=== PATIENT | male | born 1990 | race Caucasian/White ===

== ENCOUNTER 2017-03-25 17:08 | Emergency (ER) | payer SELFPAY ==
[~2017-03-25] VITALS: Ht 182.8 cm; Wt 68.0 kg
[~2017-03-25 17:08] MED LIST: ADDERALL20 MG; ADDERALL20 MG PO; ALBUTEROL0.09 MG/A2 IH; AMOXICILLIN500 MG PO; BACTRIM DS 8001 TA1 PO; BENADRYL25 MG PO; CIPROFLOXACIN500 MG PO; CLINDAMYCIN HC300 MG PO; FLEXERIL10 MG PO; FLEXERIL5 MG PO; KEFLEX500 M1 PO; KEFLEX500 MG PO; MEDROL DOSEPAK4 MG PO; MOTRIN800 MG PO; Motrin,Rufen800 MG PO; NAPROSYN500 MG PO; NKHM; NORCO 325 MG-51 TAB PO; PREDNICOT20 MG PO; VALIUM10 MG; VIBRAMYCIN100 MG PO; VISTARIL50 MG PO; ZANTAC150 MG PO; ZITHROMAX Z PA250 MG PO; ZITHROMAX250 MG PO
[2017-03-25 17:19] VITALS: BP 121/91
== END 2017-03-25 18:34 | disposition left against medical advice (07) ==
LOC: ED 17:08
DX: F11.23 Opioid dependence with withdrawal (principal); F41.9 Anxiety disorder, unspecified; F17.200 Nicotine dependence, unspecified, uncomplicated; F10.10 Alcohol abuse, uncomplicated; Z53.21 Procedure and treatment not carried out due to patient leaving prior to being seen by health care provider

== ENCOUNTER 2017-05-19 09:47 | Inpatient (IN) | payer OTHER ==
[~2017-05-19] VITALS: Ht 182.9 cm; Wt 70.3 kg
--- NOTE | ~2017-05-19 | PR ---
[place], [place] PROGRESS NOTE NAME: JANE MIRANDA JR [facility] #: [id number] UNIT #: [id number] ROOM: 528 DOCTOR: JOYCE SIGALA MD BIRTHDATE: [birth year] DOS: 05/22/2017 SUBJECTIVE: The patient was seen and examined. He is awake and alert. He denied any issues. Denies shortness of breath, fevers, chills or night sweats. He is without shortness of breath or chest pain. PHYSICAL EXAMINATION: VITAL SIGNS: Temperature 98.2, pulse 68, respiratory rate 20, blood pressure 140/78. HEENT: Shows no JVD. LUNGS: Clear. HEART: Normal S1, S2. ABDOMEN: Soft, nontender. There is no organomegaly. EXTREMITIES: Showed no edema. SKIN: Showed no rash. LABORATORY DATA: Hemoglobin 13.9, white count of 11.9, platelets 275. Sodium 140, potassium 3.9, CO2 of 27, BUN 7, creatinine of 0.88, calcium 7.9. CK of 6986. ASSESSMENT AND PLAN: 1. Acute kidney injury with rhabdomyolysis. The patient's renal function is improving. His CK levels have been improving. Continue IV fluids for now. Replace electrolytes as needed. 2. Leukocytosis. This seems to be improving. Management per the primary service. 3. Elevated LFTs. This is also trending downward. Continue to follow. JOYCE SIGALA MD CM:PNTRANS 02 30 JOYCE SIGALA MD 05/22/172027 interface
--- NOTE | ~2017-05-19 | CON ---
[place], [place] REPORT OF CONSULTATION NAME[id number] UN[facility] #: [id number] ROOM: 528 DOCTOR: TATY BRADSHAW MD BIRTHDATE: [birth year] DOS: 05/19/2017 REASON FOR CONSULTATION: Acute kidney injury. HISTORY OF PRESENT ILLNESS: The patient is a 27-year-old gentleman that came to the Emergency Room, found down. He was found to be lethargic. It was unclear what has been happening. He is known to have a history of drug abuse, both IV and other polysubstances. His urinalysis was positive for blood, protein, and he has been noting tea-colored urine. He has been using cocaine. He smokes tobacco as well as marijuana. The patient was apparently found down and has had excruciating pain around the right buttock area into the hamstring and thigh area. He has had several imaging studies which were negative for any findings of fracture or acute bony abnormalities. His CPK is nearly 30,000. His urine myoglobin is greater than the detectable limits. They do not remember any history of kidney problems in the past and the only labs in his system showed a normal creatinine 0.9 a year and a half ago. His creatinine was 1.63 on arrival here today. His electrolytes were otherwise within normal limits. His lactate was elevated to 2.4, but improved after volume to 1.6. His CPK was 29,891 with a troponin of 0.9. ESR was negative. He is dry with an albumin level that is slightly hyperconcentrated of 4.6. Amylase and lipase were normal. His tox screen was as above and coags are normal. His white count was elevated at 22,000. His hemoglobin is 15, platelets 368. There are no medications that the patient is aware of and the patient is somnolent at this time, but does answer brief questions. Most of the history is gained from the chart as well as the [id number] who is at the bedside. PAST MEDICAL, FAMILY AND SOCIAL HISTORY AND REVIEW OF SYSTEMS: Noted and reviewed from the admitting H and P and unchanged. He works as an industrial removal expert, cleaning out junked warehouses . PHYSICAL EXAMINATION: VITAL SIGNS: 90s-120s/60s-80s, temperature afebrile, heart rates 90s, respiratory rate 16-20, pulse ox 97% on room air. GENERAL: He is lethargic, but awakens to voice. He is oriented in spheres, knows he is in the hospital and he is oriented to himself. PSYCHIATRIC: Memory is apparently still intact as well. SKIN: There are no skin changes or breakdowns. EXTREMITIES: There is tenderness of the right buttock and hip and flank area, mostly in the muscle compartments, but without tense edema palpable. There is no calf tenderness in either extremity. HEENT: Extraocular muscles are intact. Sclerae are anicteric. Oropharynx is dry. NECK: No JVD or lymphadenopathy, no carotid bruit. LUNGS: Clear bilaterally without audible rales or wheeze. He is tattooed. CARDIOVASCULAR: Rate is regular. No audible rub. ABDOMEN: Soft, nontender, nondistended. No rebound or guarding. NEUROLOGIC: Gross motor functions intact. Sensation is grossly intact. Mood and affect are normal. LABORATORIES AND DIAGNOSTICS: All reviewed. Troponin 0.9. CK 29,891. [place], [place] REPORT OF CONSULTATION NAME: JANE MIRANDA JR UNIT #: [id number] ROOM: 528 DOCTOR: TATY BRADSHAW MD BIRTHDATE: [birth year] Myoglobin greater than 20,000. Lactic acid now down to 1.6. Urinalysis as above with trace protein, 3+ blood, some rbc's and wbc's. Reportedly, there are RBC casts noted. This was per the lab read. I will need to review this myself. Positive for urine cocaine and cannabinoids. White count is 22,000, hemoglobin [address] of the hip, ultrasound of the abdomen, CT of the lumbar spine was given with contrast. X-ray of the hip and x-ray of the chest were all reviewed as well as a CT of the head. ASSESSMENT AND PLAN: Acute kidney injury likely due to rhabdomyolysis, question of RBC casts brings up the possibility of an acute glomerulonephritis; however, this seems less likely though drug abuse and heroin nephropathy MPGN are certainly plausible, it seems less likely when his clinical findings are more consistent with rhabdomyolysis. Continue to give copious hydration. We will need to monitor for the effects of possible contrast-induced nephropathy and continue with IV fluids. Monitor serial CPK levels and we will recheck a urine sediment analysis as we get a better idea of where his renal function trends. Avoid use of nephrotoxic medications for the contrast agents if possible, avoid the use of NSAIDs and dose medications for GFR of 30-40 at this point based on his urinalysis, we may be able to adjust this as needed. Thank you very much for the kind consultation. TATY BRADSHAW MD CM:CONSTR:REPORT OF CONSULTATION 1918 05/19/17 2241 interface
[2017-05-19 09:51] VITALS: BP 98/63
[2017-05-19 10:17] LABS: HEMATOCRIT 45.9 % (42.0-52.0); MEAN CELL VOLUME 89.8 fl (80.0-94.0); MEAN CORPUSCULAR HGB 29.4 pg (27.0-31.0); MEAN CORPUSCULAR HGB CONC 32.7 g/dl (33.0-37.0); MEAN PLATELET VOLUME 9.2 fl (9.6-12.3); PLATELET COUNT AUTOMATED 368 10*3/uL (130-400); RED BLOOD COUNT 5.11 10*6/uL (4.50-5.90); RED CELL DISTRI WIDTH 13.2 % (0-14.5); WHITE BLOOD COUNT 22.1 10*3/uL (4.8-10.8)
[2017-05-19 10:33] LABS: ALBUMIN 4.6 gm/dl (3.1-4.5); ALKALINE PHOSPHATASE 121 U/L (45-117); BUN 19 mg/dl (7-24); CHLORIDE 102 mmol/L (98-107); CREATININE 1.63 mg/dL (0.70-1.30); POTASSIUM 4.8 mmol/L (3.5-5.1); SGOT/AST 178 IU/L (3-35); SGPT/ALT 56 U/L (12-78); SODIUM 139 mmol/L (136-145); TOTAL PROTEIN 8.4 gm/dL (6.4-8.2)
[2017-05-19 10:36] LABS: ACETAMINOPHEN (TYLENOL) < 2.0 ug/ml (10-30); ETHYL ALCOHOL < 3.0 mg/dl (<3); TROPONIN I 0.291 ng/ml (<0.045)
[2017-05-19 10:37] LABS: PLATELET SUFFICIENCY NORMAL (NORMAL); TOTAL CELLS COUNTED 100 #CELLS
[2017-05-19 11:03] LABS: ACT PARTIAL THROMBO TIME 21.9 SECONDS (20.8-31.5)
[2017-05-19 12:04] LABS: BILIRUBIN NEGATIVE (NEGATIVE); BLOOD 3+ (NEGATIVE); CLARITY CLOUDY (CLEAR); COLOR YELLOW (YELLOW); GLUCOSE 3+ (NEGATIVE); KETONE NEGATIVE (NEGATIVE); LEUKO ESTERASE NEGATIVE (NEGATIVE); NITRITE NEGATIVE (NEGATIVE); SPECIFIC GRAVITY >= 1.030 (1.005-1.030); UROBILINOGEN 0.2 E.U./dl (0.2-1.0)
[2017-05-19 12:20] VITALS: BP 132/80
[2017-05-19 12:23] LABS: URINE AMPHETAMINES < 1000 (1000ng/ml); URINE BARBITURATES < 200 (200ng/ml); URINE BENZODIAZEPINES < 200 (200ng/ml); URINE CANNABINOIDS (THC) > 50 (50ng/ml); URINE COCAINE > 300 (300ng/ml); URINE METHADONE < 300 (300ng/ml); URINE OPIATES < 300 (300ng/ml)
[2017-05-19 12:27] LABS: BACTERIA 2+; RBC 31-40 rbc/hpf (0-2); RED BLOOD CELL CAST 20-30
[2017-05-19 12:30] LABS: URINE PHENCYCLIDINE < 25 (25ng/ml)
[2017-05-19 14:02] VITALS: BP 132/88
[2017-05-19 14:48] VITALS: BP 121/89; BP 1214/89
[2017-05-19 16:00] VITALS: BP 117/87
[2017-05-19 16:14] LABS: LDH 869 U/L (87-241)
[2017-05-19 17:08] LABS: MYOGLOBIN > 20000.0 ng/ml (16-116)
[2017-05-19 17:10] LABS: CKMB 657.7 ng/ml (0.5-3.6)
[2017-05-19 17:36] LABS: CPK 29891 U/L (39-308)
[2017-05-19 20:00] VITALS: BP 127/88; BP 136/83
[2017-05-20] VITALS: BP 135/85
[2017-05-20 05:53] LABS: BASO # 0.1 10*3/uL (0.0-0.1); BASO % 0.3 % (0.0-1.0); EOS % 0.3 % (1.0-4.0); HEMATOCRIT 44.9 % (42.0-52.0); LYMPH # 2.4 10*3/uL (1.3-4.4); LYMPH % 16.6 % (27.0-41.0); MEAN CELL VOLUME 88.6 fl (80.0-94.0); MEAN CORPUSCULAR HGB 29.6 pg (27.0-31.0); MEAN CORPUSCULAR HGB CONC 33.4 g/dl (33.0-37.0); MEAN PLATELET VOLUME 9.8 fl (9.6-12.3); MONO # 1.4 10*3/uL (0.1-1.0); MONO % 9.8 % (3.0-9.0); NEUT # 10.5 10*3/uL (2.3-7.9); NEUT % 72.5 % (47.0-73.0); PLATELET COUNT AUTOMATED 330 10*3/uL (130-400); RED BLOOD COUNT 5.07 10*6/uL (4.50-5.90); RED CELL DISTRI WIDTH 13.2 % (0-14.5); WHITE BLOOD COUNT 14.5 10*3/uL (4.8-10.8)
[2017-05-20 06:01] LABS: ALBUMIN 3.2 gm/dl (3.1-4.5); CREATININE 1.74 mg/dL (0.70-1.30); PHOSPHOROUS 3.4 mg/dL (2.5-4.9); POTASSIUM 4.1 mmol/L (3.5-5.1); TOTAL PROTEIN 6.6 gm/dL (6.4-8.2)
[2017-05-20 06:02] LABS: FREE T4 0.95 ng/dl (0.76-1.46)
[2017-05-20 06:24] LABS: THYROID STIM HORMONE (HS) 1.11 uIU/ml (0.358-4.75)
[2017-05-20 06:26] LABS: TROPONIN I 0.534 ng/ml (<0.045)
[2017-05-20 08:00] VITALS: BP 138/95
[2017-05-20 08:47] LABS: VITAMIN D, 25-HYDROXY 8.7 ng/mL (30-100)
[2017-05-20 12:00] VITALS: BP 127/78
[2017-05-20 16:23] VITALS: BP 134/94
[2017-05-20 20:00] VITALS: BP 148/90
[2017-05-21] VITALS: BP 134/91; BP 136/88
[2017-05-21 05:53] LABS: ALBUMIN 2.9 gm/dl (3.1-4.5); ALKALINE PHOSPHATASE 76 U/L (45-117); CHLORIDE 109 mmol/L (98-107); CREATININE 1.15 mg/dL (0.70-1.30); POTASSIUM 3.8 mmol/L (3.5-5.1); SGOT/AST 581 IU/L (3-35); SGPT/ALT 229 U/L (12-78); SODIUM 143 mmol/L (136-145)
[2017-05-21 05:57] LABS: BUN 9 mg/dl (7-24)
[2017-05-21 06:17] LABS: CPK 11920 U/L (39-308)
[2017-05-21 07:07] LABS: HEPATITIS B SURFACE AG Negative (Negative)
[2017-05-21 08:00] VITALS: BP 130/89
[2017-05-21 12:00] VITALS: BP 124/93
[2017-05-21 16:00] VITALS: BP 127/85
[2017-05-21 20:00] VITALS: BP 140/90
[2017-05-22 05:50] LABS: ALBUMIN 2.5 gm/dl (3.1-4.5); ALKALINE PHOSPHATASE 68 U/L (45-117); BUN 7 mg/dl (7-24); CHLORIDE 107 mmol/L (98-107); CREATININE 0.88 mg/dL (0.70-1.30); POTASSIUM 3.9 mmol/L (3.5-5.1); SGOT/AST 369 IU/L (3-35); SGPT/ALT 193 U/L (12-78); SODIUM 140 mmol/L (136-145); TOTAL PROTEIN 5.4 gm/dL (6.4-8.2)
[2017-05-22 05:55] LABS: BASO # 0.1 10*3/uL (0.0-0.1); BASO % 0.6 % (0.0-1.0); EOS # 0.3 10*3/uL (0.0-0.4); EOS % 2.1 % (1.0-4.0); HEMOGLOBIN 13.9 g/dl (14.0-18.0); LYMPH # 4.3 10*3/uL (1.3-4.4); LYMPH % 36.1 % (27.0-41.0); MEAN CELL VOLUME 88.1 fl (80.0-94.0); MEAN CORPUSCULAR HGB 29.1 pg (27.0-31.0); MEAN CORPUSCULAR HGB CONC 33.1 g/dl (33.0-37.0); MEAN PLATELET VOLUME 9.7 fl (9.6-12.3); MONO # 0.8 10*3/uL (0.1-1.0); NEUT # 6.4 10*3/uL (2.3-7.9); NEUT % 53.8 % (47.0-73.0); PLATELET COUNT AUTOMATED 275 10*3/uL (130-400); RED BLOOD COUNT 4.77 10*6/uL (4.50-5.90); RED CELL DISTRI WIDTH 12.9 % (0-14.5); WHITE BLOOD COUNT 11.9 10*3/uL (4.8-10.8)
[2017-05-22 06:14] LABS: CPK 6986 U/L (39-308)
[2017-05-22 08:00] VITALS: BP 124/84
[2017-05-22 12:00] VITALS: BP 140/78
[2017-05-22 16:00] VITALS: BP 119/69
[2017-05-22 20:00] VITALS: BP 133/87
[2017-05-23] VITALS: BP 134/86
[2017-05-23 06:02] LABS: BUN 8 mg/dl (7-24); CHLORIDE 106 mmol/L (98-107); CREATININE 0.77 mg/dL (0.70-1.30); SODIUM 140 mmol/L (136-145)
[2017-05-23 06:18] LABS: CPK 4180 U/L (39-308)
[2017-05-23 07:42] LABS: HEPATITIS C VIRUS ANTIBODY >11.0 s/co (0.0-0.9)
[2017-05-23 08:00] VITALS: BP 115/69
[2017-05-23] MEDS ORDERED: ROPINIROLE HYD0.5 MG PO (14:47)
[2017-05-23] MEDS ORDERED: ATARAX,VISTARIL50 MG PO (14:47)
[2017-05-23] MEDS ORDERED: VITAMIN D50000 UNIT PO (14:52)
== END 2017-05-23 15:14 | disposition home or self-care (01) | DRG 871 ==
LOC: ED 09:47 → EDHOLD 14:03 → 5E 14:03
PROVIDERS: Internal Medicine; Internal Medicine Nephrology; Registered Nurse; Student in an Organized Health Care Education/Training Program
DX: A41.9 Sepsis, unspecified organism (principal); N17.0 Acute kidney failure with tubular necrosis; G93.41 Metabolic encephalopathy; F11.23 Opioid dependence with withdrawal; M25.551 Pain in right hip; T79.6XXA Traumatic ischemia of muscle, initial encounter; E55.9 Vitamin D deficiency, unspecified; F14.10 Cocaine abuse, uncomplicated; F12.10 Cannabis abuse, uncomplicated; N05.9 Unspecified nephritic syndrome with unspecified morphologic changes; F17.210 Nicotine dependence, cigarettes, uncomplicated; W18.39XA Other fall on same level, initial encounter; R74.8 Abnormal levels of other serum enzymes; R65.20 Severe sepsis without septic shock; R74.0 Nonspecific elevation of levels of transaminase and lactic acid dehydrogenase [LDH]; Z91.030 Bee allergy status; Z83.3 Family history of diabetes mellitus; Z82.3 Family history of stroke; Z82.5 Family history of asthma and other chronic lower respiratory diseases

== ENCOUNTER 2017-06-02 06:51 | Emergency (ER) | payer OTHER ==
[~2017-06-02] VITALS: Ht 175.2 cm; Wt 95.7 kg
[~2017-06-02 06:51] MED LIST changes: +ATARAX,VISTARIL50 MG PO; +ROPINIROLE HYD0.5 MG PO; +VITAMIN D50000 UNIT PO
[2017-06-02 06:57] VITALS: BP 111/62
[2017-06-02 07:56] LABS: BASO # 0.1 10*3/uL (0.0-0.1); BASO % 0.6 % (0.0-1.0); EOS # 0.2 10*3/uL (0.0-0.4); EOS % 2.2 % (1.0-4.0); HEMATOCRIT 36.1 % (42.0-52.0); HEMOGLOBIN 12.1 g/dl (14.0-18.0); LYMPH # 2.8 10*3/uL (1.3-4.4); LYMPH % 26.7 % (27.0-41.0); MEAN CORPUSCULAR HGB 29.5 pg (27.0-31.0); MEAN CORPUSCULAR HGB CONC 33.5 g/dl (33.0-37.0); MEAN PLATELET VOLUME 8.8 fl (9.6-12.3); MONO # 0.6 10*3/uL (0.1-1.0); MONO % 6.1 % (3.0-9.0); NEUT # 6.6 10*3/uL (2.3-7.9); NEUT % 64.1 % (47.0-73.0); PLATELET COUNT AUTOMATED 318 10*3/uL (130-400); RED CELL DISTRI WIDTH 13.1 % (0-14.5); WHITE BLOOD COUNT 10.3 10*3/uL (4.8-10.8)
[2017-06-02 08:15] LABS: ALBUMIN 3.5 gm/dl (3.1-4.5); ALKALINE PHOSPHATASE 78 U/L (45-117); BUN 12 mg/dl (7-24); CHLORIDE 104 mmol/L (98-107); CPK 147 U/L (39-308); CREATININE 0.85 mg/dL (0.70-1.30); LIPASE 123 U/L (73-393); POTASSIUM 3.6 mmol/L (3.5-5.1); SGOT/AST 38 IU/L (3-35); SODIUM 139 mmol/L (136-145); TOTAL PROTEIN 6.8 gm/dL (6.4-8.2)
[2017-06-02 08:18] LABS: SGPT/ALT 56 U/L (12-78)
== END 2017-06-02 09:16 | disposition left against medical advice (07) ==
LOC: ED 06:51
PROVIDERS: Emergency Medicine
DX: M25.551 Pain in right hip (principal); F17.200 Nicotine dependence, unspecified, uncomplicated; Z91.030 Bee allergy status

== ENCOUNTER 2017-09-15 23:48 | Emergency (ER) | payer OTHER ==
[~2017-09-15] VITALS: Ht 182.8 cm; Wt 72.6 kg
[2017-09-16 00:27] VITALS: BP 115/82
[2017-09-16 00:35] LABS: BASO % 0.2 % (0.0-1.0); EOS % 0.3 % (1.0-4.0); HEMATOCRIT 39.1 % (42.0-52.0); HEMOGLOBIN 13.1 g/dl (14.0-18.0); LYMPH # 1.4 10*3/uL (1.3-4.4); LYMPH % 10.6 % (27.0-41.0); MEAN CELL VOLUME 88.5 fl (80.0-94.0); MEAN CORPUSCULAR HGB 29.6 pg (27.0-31.0); MEAN CORPUSCULAR HGB CONC 33.5 g/dl (33.0-37.0); MEAN PLATELET VOLUME 9.1 fl (9.6-12.3); MONO # 0.7 10*3/uL (0.1-1.0); MONO % 5.1 % (3.0-9.0); NEUT # 10.7 10*3/uL (2.3-7.9); NEUT % 82.9 % (47.0-73.0); PLATELET COUNT AUTOMATED 308 10*3/uL (130-400); RED BLOOD COUNT 4.42 10*6/uL (4.50-5.90); RED CELL DISTRI WIDTH 14.2 % (0-14.5); WHITE BLOOD COUNT 12.9 10*3/uL (4.8-10.8)
[2017-09-16 00:53] LABS: ALKALINE PHOSPHATASE 118 U/L (45-117); BUN 11 mg/dl (7-24); CHLORIDE 107 mmol/L (98-107); CREATININE 0.96 mg/dL (0.70-1.30); POTASSIUM 3.2 mmol/L (3.5-5.1); SGOT/AST 46 IU/L (3-35); SGPT/ALT 144 U/L (12-78); SODIUM 141 mmol/L (136-145); TOTAL PROTEIN 7.5 gm/dL (6.4-8.2)
[2017-09-16 00:57] LABS: TROPONIN I 0.083 ng/ml (<0.045)
== END 2017-09-16 01:52 | disposition left against medical advice (07) ==
LOC: ED 23:48
PROVIDERS: Emergency Medicine
DX: T40.1X1A Poisoning by heroin, accidental (unintentional), initial encounter (principal); F17.200 Nicotine dependence, unspecified, uncomplicated; F14.10 Cocaine abuse, uncomplicated; F12.10 Cannabis abuse, uncomplicated; F11.10 Opioid abuse, uncomplicated; Z91.030 Bee allergy status; Z79.899 Other long term (current) drug therapy; Y92.9 Unspecified place or not applicable

== ENCOUNTER 2017-10-25 18:55 | Emergency (ER) | payer OTHER ==
[~2017-10-25] VITALS: Ht 180.3 cm; Wt 74.8 kg
[2017-10-25 18:58] VITALS: BP 103/61
[2017-10-25] MEDS ORDERED: CEFADROXIL500 M1 PO (19:05)
== END 2017-10-25 19:48 | disposition home or self-care (01) ==
LOC: ED 18:55
DX: S61.216A Laceration without foreign body of right little finger without damage to nail, initial encounter (principal); F17.200 Nicotine dependence, unspecified, uncomplicated; F14.90 Cocaine use, unspecified, uncomplicated; Z91.030 Bee allergy status; W45.8XXA Other foreign body or object entering through skin, initial encounter; Y93.89 Activity, other specified; Y92.69 Other specified industrial and construction area as the place of occurrence of the external cause; Y99.9 Unspecified external cause status

== ENCOUNTER 2017-12-29 16:49 | Emergency (ER) | payer OTHER ==
[~2017-12-29] VITALS: Wt 77.1 kg
[~2017-12-29 16:49] MED LIST changes: +CEFADROXIL500 M1 PO
[2017-12-29 17:15] VITALS: BP 115/74
== END 2017-12-29 17:59 ==
LOC: ED 16:49
DX: T40.1X1A Poisoning by heroin, accidental (unintentional), initial encounter (principal); R06.89 Other abnormalities of breathing; F14.10 Cocaine abuse, uncomplicated; F11.10 Opioid abuse, uncomplicated; F17.200 Nicotine dependence, unspecified, uncomplicated; Z91.030 Bee allergy status; Z79.2 Long term (current) use of antibiotics; Y92.098 Other place in other non-institutional residence as the place of occurrence of the external cause

== ENCOUNTER 2019-03-04 00:14 | Emergency (ER) | payer SELFPAY ==
[~2019-03-04] VITALS: Ht 182.8 cm; Wt 79.8 kg
[2019-03-04 00:14] VITALS: BP 131/92
[2019-03-04 00:44] LABS: BASO # 0.1 10*3/uL (0.0-0.1); BASO % 0.4 % (0.0-1.0); EOS # 0.1 10*3/uL (0.0-0.4); EOS % 0.8 % (1.0-4.0); HEMATOCRIT 42.8 % (42.0-52.0); HEMOGLOBIN 14.6 g/dl (14.0-18.0); LYMPH # 2.5 10*3/uL (1.3-4.4); LYMPH % 15.7 % (27.0-41.0); MEAN CELL VOLUME 92.2 fl (80.0-94.0); MEAN CORPUSCULAR HGB 31.5 pg (27.0-31.0); MEAN CORPUSCULAR HGB CONC 34.1 g/dl (33.0-37.0); MEAN PLATELET VOLUME 9.5 fl (9.6-12.3); MONO # 0.7 10*3/uL (0.1-1.0); MONO % 4.1 % (3.0-9.0); NEUT # 12.6 10*3/uL (2.3-7.9); NEUT % 78.4 % (47.0-73.0); PLATELET COUNT AUTOMATED 300 10*3/uL (130-400); RED BLOOD COUNT 4.64 10*6/uL (4.50-5.90); RED CELL DISTRI WIDTH 12.7 % (0-14.5)
[2019-03-04 01:02] LABS: ALBUMIN 3.8 gm/dl (3.1-4.5); ALKALINE PHOSPHATASE 101 U/L (45-117); BUN 12 mg/dl (7-24); CHLORIDE 102 mmol/L (98-107); CREATININE 0.86 mg/dL (0.70-1.30); LIPASE 70 U/L (73-393); POTASSIUM 3.2 mmol/L (3.5-5.1); SGOT/AST 69 IU/L (3-35); SGPT/ALT 167 U/L (12-78); SODIUM 137 mmol/L (136-145); TOTAL PROTEIN 7.6 gm/dL (6.4-8.2)
[2019-03-04 01:07] LABS: ACETAMINOPHEN (TYLENOL) < 5.0 ug/ml (10-30); ETHYL ALCOHOL < 3.0 mg/dl (<3); TROPONIN I < 0.015 ng/ml (<0.045)
[2019-03-04 02:25] LABS: BILIRUBIN NEGATIVE (NEGATIVE); BLOOD NEGATIVE (NEGATIVE); CLARITY CLEAR (CLEAR); COLOR YELLOW (YELLOW); GLUCOSE 1+ (NEGATIVE); KETONE NEGATIVE (NEGATIVE); LEUKO ESTERASE NEGATIVE (NEGATIVE); NITRITE NEGATIVE (NEGATIVE); PH 5.5 (5.0-9.0); SPECIFIC GRAVITY >= 1.030 (1.005-1.030); UROBILINOGEN 0.2 E.U./dl (0.2-1.0)
[2019-03-04 02:32] LABS: BACTERIA TRACE; MUCOUS TRACE; RBC 0-2 rbc/hpf (0-2)
[2019-03-04 02:33] LABS: URINE AMPHETAMINES < 1000 (1000ng/ml); URINE BARBITURATES < 200 (200ng/ml); URINE BENZODIAZEPINES < 200 (200ng/ml); URINE CANNABINOIDS (THC) > 50 (50ng/ml); URINE COCAINE > 300 (300ng/ml); URINE METHADONE < 300 (300ng/ml); URINE OPIATES < 300 (300ng/ml); URINE PHENCYCLIDINE < 25 (25ng/ml)
[2019-03-04] MEDS ORDERED: CLINDAMYCIN HC300 MG PO (02:40)
== END 2019-03-04 02:51 | disposition home or self-care (01) ==
LOC: ED 00:14
PROVIDERS: Emergency Medicine Emergency Medical Services
DX: T40.1X1A Poisoning by heroin, accidental (unintentional), initial encounter (principal); R40.20 Unspecified coma; R05 Cough; F17.210 Nicotine dependence, cigarettes, uncomplicated; Z91.030 Bee allergy status; Y92.89 Other specified places as the place of occurrence of the external cause

== ENCOUNTER 2019-10-04 04:41 | Emergency (ER) | payer SELFPAY ==
[2019-10-04 05:42] LABS: BASO # 0.1 10*3/uL (0.0-0.1); BASO % 0.3 % (0.0-1.0); EOS # 0.1 10*3/uL (0.0-0.4); EOS % 0.4 % (1.0-4.0); HEMATOCRIT 45.1 % (42.0-52.0); LYMPH # 2.1 10*3/uL (1.3-4.4); LYMPH % 10.9 % (27.0-41.0); MEAN CELL VOLUME 92.8 fl (80.0-94.0); MEAN CORPUSCULAR HGB 30.2 pg (27.0-31.0); MEAN CORPUSCULAR HGB CONC 32.6 g/dl (33.0-37.0); MEAN PLATELET VOLUME 9.9 fl (9.6-12.3); NEUT % 82.8 % (47.0-73.0); PLATELET COUNT AUTOMATED 275 10*3/uL (130-400); RED BLOOD COUNT 4.86 10*6/uL (4.50-5.90); RED CELL DISTRI WIDTH 13.1 % (0-14.5); WHITE BLOOD COUNT 19.3 10*3/uL (4.8-10.8)
[2019-10-04 05:48] LABS: ALKALINE PHOSPHATASE 101 U/L (45-117); BUN 12 mg/dl (7-24); CHLORIDE 106 mmol/L (98-107); CREATININE 1.15 mg/dL (0.70-1.30); POTASSIUM 3.3 mmol/L (3.5-5.1); SGOT/AST 47 IU/L (3-35); SGPT/ALT 104 U/L (12-78); SODIUM 139 mmol/L (136-145); TOTAL PROTEIN 7.7 gm/dL (6.4-8.2)
[2019-10-04 05:49] LABS: TROPONIN I 0.028 ng/ml (<0.045)
[2019-10-04 07:23] VITALS: BP 107/66
[2019-10-04 07:47] LABS: URINE AMPHETAMINES < 1000 (1000ng/ml); URINE BARBITURATES < 200 (200ng/ml); URINE BENZODIAZEPINES > 200 (200ng/ml); URINE CANNABINOIDS (THC) > 50 (50ng/ml); URINE COCAINE > 300 (300ng/ml); URINE METHADONE < 300 (300ng/ml); URINE OPIATES < 300 (300ng/ml)
[2019-10-04 07:48] LABS: URINE PHENCYCLIDINE < 25 (25ng/ml)
== END 2019-10-04 09:14 | disposition left against medical advice (07) ==
LOC: ED 04:41
PROVIDERS: Emergency Medicine
DX: T40.601A Poisoning by unspecified narcotics, accidental (unintentional), initial encounter (principal); F17.200 Nicotine dependence, unspecified, uncomplicated; Z91.030 Bee allergy status; Z79.899 Other long term (current) drug therapy; Y92.89 Other specified places as the place of occurrence of the external cause

== ENCOUNTER 2019-12-06 00:44 | Emergency (ER) | payer OTHER ==
[~2019-12-06] VITALS: Ht 177.8 cm; Wt 74.8 kg
[2019-12-06 00:46] VITALS: BP 145/89
== END 2019-12-06 03:21 | disposition home or self-care (01) ==
LOC: ED 00:44
DX: T40.2X1A Poisoning by other opioids, accidental (unintentional), initial encounter (principal); Z91.030 Bee allergy status; Z79.899 Other long term (current) drug therapy; Y92.89 Other specified places as the place of occurrence of the external cause

== ENCOUNTER 2020-08-01 10:57 | Emergency (ER) | payer OTHER ==
[~2020-08-01] VITALS: Ht 180.3 cm; Wt 72.6 kg
[2020-08-01 11:02] VITALS: BP 134/96
== END 2020-08-01 13:29 | disposition left against medical advice (07) ==
LOC: ED 10:57
DX: S62.632A Displaced fracture of distal phalanx of right middle finger, initial encounter for closed fracture (principal); Z79.899 Other long term (current) drug therapy; Z91.030 Bee allergy status; X58.XXXA Exposure to other specified factors, initial encounter; Y93.89 Activity, other specified; Y92.89 Other specified places as the place of occurrence of the external cause; Y99.8 Other external cause status

== ENCOUNTER 2020-10-14 21:54 | Emergency (ER) | payer OTHER ==
[~2020-10-14] VITALS: Wt 78.0 kg
[2020-10-14 22:40] LABS: HEMATOCRIT 41.7 % (42.0-52.0); MEAN CELL VOLUME 97.9 fl (80.0-94.0); MEAN CORPUSCULAR HGB 29.1 pg (27.0-31.0); MEAN CORPUSCULAR HGB CONC 29.7 g/dl (33.0-37.0); MEAN PLATELET VOLUME 10.3 fl (9.6-12.3); PLATELET COUNT AUTOMATED 204 10*3/uL (130-400); RED BLOOD COUNT 4.26 10*6/uL (4.50-5.90); RED CELL DISTRI WIDTH 12.5 % (0-14.5); WHITE BLOOD COUNT 15.5 10*3/uL (4.8-10.8)
[2020-10-14 22:52] LABS: ALKALINE PHOSPHATASE 117 U/L (45-117); BUN 17 mg/dl (7-24); CHLORIDE 103 mmol/L (98-107); CREATININE 1.38 mg/dL (0.70-1.30); SGOT/AST 100 IU/L (3-35); SGPT/ALT 103 U/L (12-78); SODIUM 141 mmol/L (136-145); TOTAL PROTEIN 6.1 gm/dL (6.4-8.2)
[2020-10-14 22:54] LABS: TROPONIN I < 0.015 ng/ml (<0.045)
[2020-10-14 23:09] LABS: PLATELET SUFFICIENCY NORMAL (NORMAL); TOTAL CELLS COUNTED 100 #CELLS
[2020-10-15 01:55] VITALS: BP 68/29
== END 2020-10-15 02:30 ==
LOC: ED 21:54
PROVIDERS: Internal Medicine
DX: I46.9 Cardiac arrest, cause unspecified (principal); F17.200 Nicotine dependence, unspecified, uncomplicated; Z91.030 Bee allergy status; Z79.2 Long term (current) use of antibiotics